=== PATIENT | male | born 1970 | race Caucasian/White ===

== ENCOUNTER 2017-10-11 15:32 | Emergency (ER) | payer OTHER, BC ==
--- NOTE | 2017-10-11 16:02 | EDM.PDOC ---
ED HPI GENERAL MEDICAL PROBLEM - General Chief Complaint: Gastrointestinal Problem Stated Complaint: Persistent Hiccups Time Seen by Provider: 10/11/17 15:37 Source of Information: Reports: Patient, Family, RN, RN Notes Reviewed History Limitations: Reports: No Limitations - History of Present Illness INITIAL COMMENTS - FREE TEXT/NARRATIVE: Patient presents the emergency room at [facility] with complaint of persistent hiccups. The patient states that the pickup started last Wednesday. The patient underwent left rotator cuff surgery last Wednesday and was given a nerve block for pain. The patient states when the nerve block wore off the hiccups began. The patient has tried several physical maneuvers at home without any relief. The patient has tried fright, drinking lots of water, using over-the -counter products, knee to chest position, all of which have not helped. The patient states that it is disrupting the activities of daily living for him. The patient states that he is losing sleep at night because of the hiccups. Otherwise no other concerns. Onset Date: 10/06/17 - Related Data Home Meds: Home Meds chlorproMAZINE [Thorazine] 1 tab PO TID PRN 7 Days #21 tablet 10/11/17 [Rx] ED ROS GENERAL - Review of Systems Review Of Systems: See Below Constitutional: Denies: Fever, Chills, Weakness Respiratory: Denies: Shortness of Breath, Cough Cardiovascular: Denies: Chest Pain, Palpitations GI/Abdominal: Reports: Other (Persistent hiccups). Denies: Abdominal Pain, Nausea, Vomiting Skin: Reports: No Symptoms Neurological: Reports: No Symptoms ED EXAM, GI/ABD - Physical Exam Exam: See Below Exam Limited By: No Limitations General Appearance: Alert, No Apparent Distress Respiratory/Chest: No Respiratory Distress, Lungs Clear, Normal Breath Sounds Cardiovascular: Normal Peripheral Pulses, Regular Rate, Rhythm GI/Abdominal Exam: Normal Bowel Sounds, Soft, Non-Tender Extremities: Normal Inspection Neurological: Alert, Oriented Skin Exam: Warm, Dry, Intact, Normal Color, No Rash Departure - Departure Time of Disposition: 16:09 Disposition: Home, Self-Care 01 Condition: Good Clinical Impression: Intractable hiccups - Discharge Information Prescriptions: chlorproMAZINE [Thorazine] 1 tab PO TID PRN 7 Days #21 tablet PRN Reason: Hiccups Instructions: Hiccups Forms: ED Department Discharge Additional Instructions: 1. Stay well hydrated and rest 2. Take medications as directed, but only as needed 3. This medication can make you very drowsy, so use carefully 4. See your Primary as symptoms warrant - Problem List Review Problem List Initiated/Reviewed/Updated: Yes
== END 2017-10-11 16:15 | disposition home or self-care (01) ==
LOC: VM.ED 15:32
DX: R06.6 Hiccough (principal)
CPT/HCPCS: 99283

== ENCOUNTER 2021-11-03 23:48 | Inpatient (IN) | payer BC ==
[2021-11-03] MEDS: HYDROmorphone 0.5 MG/0.5 ML Syringe IVPUSH PRN (23:48)
[2021-11-04 00:58] LABS: CHLORIDE,CL 105 mmol/L (98-107); SODIUM,NA 142 mmol/L (136-145)
[2021-11-04 01:00] LABS: ANION GAP 18.3 mmol/L (5-15)
[2021-11-04] MEDS ORDERED: Thiamine 100 MG Tab PO ONE (01:09)
[2021-11-04] MEDS ORDERED: Folic Acid 1 MG Tab PO ONE (01:10)
[2021-11-04] MEDS ORDERED: Sodium Chloride 0.9% 1,000 ML IV SCH (01:15)
[2021-11-04] MEDS ORDERED: Ondansetron 4 MG Tab.DIS PO PRN (01:54)
[2021-11-04] MEDS ORDERED: Acetaminophen 325 MG Tab PO PRN (01:54)
[2021-11-04] MEDS ORDERED: Ondansetron 4 MG/2 ML SDV IV PRN (01:54)
[2021-11-04] MEDS ORDERED: Albuterol HFA 18 Gm Inhaler INH PRN ×2 (01:58→08:20)
[2021-11-04] MEDS ORDERED: Non-Formulary Medication 1 Each (Fluticasone Propion/Salmeterol 1 EACH Blst.W.Dev) PO SCH (02:00)
[2021-11-04] MEDS ORDERED: Non-Formulary Medication 1 Each (Semaglutide [Ozempic] 1 MG/0.75 ML Pen.Injctr) SQ SCH (02:00)
[2021-11-04] MEDS: HYDROmorphone 0.5 MG/0.5 ML Syringe IVPUSH PRN ×5 (02:05→12:27)
[2021-11-04] MEDS: oxyCODONE 5 MG Tab PO PRN ×2 (03:14→12:08)
[2021-11-04] MEDS ORDERED: fentaNYL 50 MCG/ML SDV IVPUSH ONE (05:37)
[2021-11-04] MEDS ORDERED: Flumazenil 0.1 MG/ML 5 ML MDV IVPUSH PRN (05:37)
[2021-11-04] MEDS: fentaNYL 50 MCG/ML SDV IVPUSH PRN ×2 (07:19→11:19)
[2021-11-04] MEDS ORDERED: metFORMIN 500 MG Tab PO SCH (08:00)
[2021-11-04] MEDS ORDERED: amLODIPine 10 MG Tab PO SCH (08:00)
[2021-11-04] MEDS ORDERED: Montelukast 10 MG Tab PO SCH (08:00)
== END 2021-11-04 12:35 | disposition short-term general hospital (02) | DRG 341 ==
LOC: VM.ED 23:48 → VM.MS 11-04 01:54
PROVIDERS: ADMIT Physician Assistant; ATTEND Physician Assistant
DX: S73.015A Posterior dislocation of left hip, initial encounter (principal); F10.129 Alcohol abuse with intoxication, unspecified; F17.200 Nicotine dependence, unspecified, uncomplicated; E78.00 Pure hypercholesterolemia, unspecified; I10 Essential (primary) hypertension; J45.909 Unspecified asthma, uncomplicated; K57.90 Diverticulosis of intestine, part unspecified, without perforation or abscess without bleeding; E11.9 Type 2 diabetes mellitus without complications; Z79.82 Long term (current) use of aspirin; Z88.8 Allergy status to other drugs, medicaments and biological substances; Z79.84 Long term (current) use of oral hypoglycemic drugs; Z79.899 Other long term (current) drug therapy; Z79.51 Long term (current) use of inhaled steroids; W18.31XA Fall on same level due to stepping on an object, initial encounter
CPT/HCPCS: 36415; 71045; 72192; 80053; 80307; 85025; 85610; 93005; 96374; 99285-25; A9270-GY; J1170; J3010; J3360; J7030; U0002

== ENCOUNTER 2021-11-28 06:25 | Day surgery (SDC) | payer BC, OTHER ==
[~2021-11-28 06:25] MED LIST: Lactated Ringers 1,000 ML IV SCH; Sodium Chloride 0.9% 10 ML Syringe FLUSH PRN
[2021-11-28] MEDS ORDERED: Propofol 200 MG/20 ML SDV ONE ×2 (07:44→08:00)
[2021-11-28] MEDS ORDERED: fentaNYL 100 MCG/2 ML SDV ONE (07:44)
== END 2021-11-28 09:59 | disposition home or self-care (01) ==
LOC: VM.SDS 06:25
PROVIDERS: ATTEND Student in an Organized Health Care Education/Training Program
DX: Z12.11 Encounter for screening for malignant neoplasm of colon (principal); K57.30 Diverticulosis of large intestine without perforation or abscess without bleeding; I10 Essential (primary) hypertension; G47.33 Obstructive sleep apnea (adult) (pediatric); E11.9 Type 2 diabetes mellitus without complications; I45.10 Unspecified right bundle-branch block; E78.2 Mixed hyperlipidemia; F17.220 Nicotine dependence, chewing tobacco, uncomplicated; J45.20 Mild intermittent asthma, uncomplicated; Z88.8 Allergy status to other drugs, medicaments and biological substances; Z86.010 Personal history of colon polyps; Z98.890 Other specified postprocedural states; Z80.0 Family history of malignant neoplasm of digestive organs; Z79.84 Long term (current) use of oral hypoglycemic drugs; Z79.82 Long term (current) use of aspirin; Z79.51 Long term (current) use of inhaled steroids; Z79.899 Other long term (current) drug therapy
CPT/HCPCS: 00811; 82947; J2704; J3010; J7120